=== PATIENT | female | born 1995 | race Caucasian/White ===

== ENCOUNTER 2018-07-11 17:43 | Emergency (ER) | END 2018-07-11 19:35 | disposition home or self-care (01) ==

== ENCOUNTER 2019-08-30 10:08 | Emergency (ER) | payer BC ==
[~2019-08-30] VITALS: Ht 152.4 cm; Wt 50.8 kg
[~2019-08-30 10:08] MED LIST: CEPH-443 PO; IBUP-1561 PO; NAPR-985 PO; SULF1TAB31 PO
[2019-08-30 10:17] VITALS: BP 101/66; Ht 152.4 cm; Wt 50.8 kg
[2019-08-30 12:01] VITALS: PULSE 92; RESP 18
== END 2019-08-30 12:02 | disposition home or self-care (01) ==
LOC: FTE 10:08
DX: S62.663A Nondisplaced fracture of distal phalanx of left middle finger, initial encounter for closed fracture (principal); S92.352A Displaced fracture of fifth metatarsal bone, left foot, initial encounter for closed fracture; W01.0XXA Fall on same level from slipping, tripping and stumbling without subsequent striking against object, initial encounter; Y92.9 Unspecified place or not applicable